=== PATIENT | female | born 1990 ===

== ENCOUNTER → 2022-02-08 | Outpatient (CLI) | payer SELFPAY | LOC: LAB SHORT 16:30 | DX: R30.0 Dysuria (principal) | CPT/HCPCS: 87086 ==

== ENCOUNTER → 2022-02-12 | Outpatient (CLI) | payer SELFPAY ==
[2022-02-13 10:38] LABS: Candida species (DNA Probe) Positive (NEGATIVE); G. vaginalis (DNA Probe) Negative (NEGATIVE); T. vaginalis (DNA Probe) Negative (NEGATIVE)
== END | disposition home or self-care (01) ==
LOC: LAB SHORT 12:30
PROVIDERS: Nurse Practitioner Family
DX: N39.0 Urinary tract infection, site not specified (principal)
CPT/HCPCS: 87070; 87077; 87106; 87186; 87205; 87480; 87510; 87660